=== PATIENT | female | born 1990 | race Caucasian/White ===

== ENCOUNTER 2017-01-06 15:23 | Emergency (ER) | payer OTHER ==
[2017-01-06 16:23] VITALS: BP 146/86
== END 2017-01-06 16:23 | disposition left against medical advice (07) ==
LOC: ED 15:23
DX: Z53.21 Procedure and treatment not carried out due to patient leaving prior to being seen by health care provider (principal)

== ENCOUNTER 2017-11-25 07:47 | Emergency (ER) | payer OTHER ==
[~2017-11-25] VITALS: Ht 149.9 cm; Wt 57.1 kg
[2017-11-25 07:51] VITALS: Ht 149.9 cm; Wt 57.1 kg
[2017-11-25 08:36] LABS: BASOPHIL % 0.4 % (0-2); PLATELET COUNT 240 x10^3mcL (130-400); RED CELL DISTRIBUTION WIDTH 13.3 % (11.5-14.5)
[2017-11-25 09:03] LABS: CALCIUM 8.9 mg/dL (8.5-10.1); CARBON DIOXIDE 26.9 mmol/L (21-32); CHLORIDE SERUM 106 mmol/L (98-107); CREATININE SERUM 0.6 mg/dL (0.6-1.0); GFR1 > 60 mL/min; GLUCOSE SERUM 98 mg/dL (74-106); POTASSIUM SERUM 4.4 mmol/L (3.5-5.1); SODIUM SERUM 140 mmol/L (136-145)
[2017-11-25 09:07] LABS: ALBUMIN 3.9 g/dL (3.4-5.0); ALKALINE PHOSPHATASE 64 U/L (46-116); ALT/SGPT 23 U/L (14-59); AMYLASE 54 U/L (25-115); AST/SGOT 17 U/L (15-37); BILIRUBIN TOTAL 0.25 mg/dL (0.20-1.00); LIPASE 320 IU/L (73-393); TOTAL PROTEIN, SERUM 7.5 g/dL (6.4-8.2)
[2017-11-25 10:00] LABS: microscopic required? NO
[2017-11-25 10:48] VITALS: BP 107/73
[2017-11-25 11:05] LABS: UA SPECIFIC GRAVITY 1.025 (1.005-1.035); urine erythrocyte NEGATIVE (NEGATIVE)
== END 2017-11-25 10:42 | disposition home or self-care (01) ==
LOC: ED 07:47
PROVIDERS: Specialist
DX: R10.2 Pelvic and perineal pain (principal)
CPT/HCPCS: 83880; J1885; J7030; Q0092

== ENCOUNTER 2017-11-25 22:43 | Emergency (ER) | payer OTHER ==
[~2017-11-25] VITALS: Ht 149.9 cm; Wt 58.5 kg
[2017-11-25 23:18] VITALS: Ht 149.9 cm; Wt 58.5 kg
[2017-11-26 02:24] VITALS: BP 107/71
== END 2017-11-26 02:24 | disposition home or self-care (01) ==
LOC: ED 22:43
DX: H10.13 Acute atopic conjunctivitis, bilateral (principal); J45.909 Unspecified asthma, uncomplicated; R10.30 Lower abdominal pain, unspecified
CPT/HCPCS: J1200